=== PATIENT | female | born 1995 ===

== ENCOUNTER 2023-11-21 08:41 | Outpatient (CLI) | payer OTHER ==
[2023-11-22 08:08] LABS: HEMOGLOBIN A1C 5.4 % (4.8-5.6)
== END 2023-11-21 20:12 | disposition home or self-care (01) ==
LOC: MLB 08:41
PROVIDERS: ATTEND Student in an Organized Health Care Education/Training Program
DX: D50.9 Iron deficiency anemia, unspecified (principal)
CPT/HCPCS: 36415; 82728; 83036; 85014